=== PATIENT | female | born 1975 | race Caucasian/White ===

== ENCOUNTER 2018-09-23 06:01 | Day surgery (SDC) | payer MEDICARE, MEDICAID, SELFPAY ==
[2018-09-23 06:36] VITALS: BP 126/65; PULSE 76; RESP 18; TEMP 36.8; O2SAT 95
[2018-09-23] MEDS: Lactated Ringers 1,000 ML 80 ML IV (07:13)
--- NOTE | 2018-09-23 07:30 | W.PM.DSUDISC ---
Discharge Plan Disposition Patient Disposition: HOME Condition: Good Discharge Details Reason For Visit: tubes- OR Attending Provider: Pepe Arredondo Primary Care Provider: Rylee Lechuga Home Meds and New Rx's Prescriptions: No Action GLUCOPHAGE 500 MG tablet 500 mg PO BID RF: 0 melatonin 3 mg Tablet 6 mg PO HS PRNRF: 0 simvastatin 20 mg Tablet 20 mg PO DAILY RF: 0 lisinopril 5 mg Tablet 5 mg PO DAILY RF: 0 multivitamin Capsule 1 cap PO DAILY RF: 0 cholecalciferol (vitamin D3) [Vitamin D3] 1,000 unit Capsule 100 unit PO DAILY RF: 0 metformin 500 mg Tablet 500 mg PO BID RF: 0 Discharge Instructions Additional Instructions: see form Activity:: Activity as Tolerated Diet:: As Tolerated DS: Diagnosis Discharge Diagnosis (1) Chronic otitis media of both ears: Status: Acute (2) Down's syndrome: Status: Acute
[2018-09-23] MEDS: Ofloxacin 0.3% OTIC 5 ML BTL (08:04)
[2018-09-23 08:13] VITALS: BP 140/81; PULSE 87; RESP 17; TEMP 36.6; O2SAT 97
[2018-09-23 08:18] VITALS: BP 154/87; PULSE 83; RESP 18; TEMP 36.6; O2SAT 96
[2018-09-23 08:23] VITALS: BP 154/87; PULSE 86; RESP 14; TEMP 36.6; O2SAT 96
[2018-09-23 08:55] VITALS: BP 128/71; PULSE 79; RESP 18; TEMP 36.7; O2SAT 94
--- NOTE | 2018-09-23 11:52 | ROE_ITS ---
DATE OF PROCEDURE: September 23, 2018 PREOPERATIVE DIAGNOSIS: 1. Recurring mucoid otitis media bilaterally. 2. Conductive hearing loss. 3. History of Down Syndrome. 4. History of pressure equalization tube. 5. History of adenoidectomy. POSTOPERATIVE DIAGNOSIS: Same. PROCEDURE: Long-acting pressure equalization tube placement with operative microscope and evacuation of middle ear contents. SURGEON: Peep Arredondo D.O. ANESTHESIA: General LMA COMPLICATIONS: None. CONDITION: The patient tolerated the procedure well. FINDINGS: Thick mucoid fluid bilateral middle ear space. INDICATIONS FOR PROCEDURE: This is a pleasant 43-year-old female that presents with a history of con ductive hearing loss and recurring mucoid otitis with difficulty hearing, refractory to medical manag ement. She has had tubes placed in the past. Down syndrome patients are more prone to this. The de cision was made forth to proceed with long-acting tubes. Consent was placed in the Chart. DESCRIPTION OF OPERATIVE PROCEDURE: The patient was brought back to the operating suite in stable condition, placed supine on the operating table, and given and general sedation. Time-out was taken to confirm the patient and procedure. The operative microscope was used first to visualize the right external auditory canal. After cerumenectomy was performed, the tympanic membrane was intact. The tympanic membrane had evidence of erythema and mild bulging characteristic. There was poor visualiza tion of middle ear space with a slightly thickened tympanic membrane. A posterior inferior radial ty pe incision was made with myringotomy knife. Middle ear contents were evacuated. A long-acting Shee hy T-tube was placed with ease followed by Floxin otic drops and a cotton ball in the conchal bowl. Attention then was turned to the left external auditory canal. Again, cerumenectomy was performed an d the tympanic membrane was dull with poor visualization with mild erythema. A radial type incision w as made in the inferior posterior quadrant with a myringotomy knife. Middle ear contents were suctio susan. A long-acting Luis T-tube was placed without complication, followed by Floxin otic drops. A cotton ball was placed in the conchal bowl. The patient was stable to PACU and will follow up in 2 we eks in the office. Postoperative instructions were given to include water precautions with the use of ear plugs as well as finishing the otic drops twice daily.
== END 2018-09-23 09:25 | disposition home or self-care (01) ==
PROVIDERS: PCP Family Medicine; Visit Provider Otolaryngology Otolaryngology/Facial Plastic Surgery
PROC: (CPT 69420; principal; 2018-09-23 08:30)
DX: H65.33 Chronic mucoid otitis media, bilateral (principal); H90.2 Conductive hearing loss, unspecified; Q90.9 Down syndrome, unspecified
CPT/HCPCS: 69436; J1100; J2405

== ENCOUNTER 2019-03-11 17:04 | Outpatient (REF) | payer MEDICARE, MEDICAID, SELFPAY | END 2019-03-11 17:24 | LOC: NCHCN 17:04 | PROVIDERS: PCP Family Medicine; Visit Provider Nurse Practitioner Family | DX: L08.9 Local infection of the skin and subcutaneous tissue, unspecified (principal) | CPT/HCPCS: 87070; 87205 ==

== ENCOUNTER 2019-03-18 12:37 | Outpatient (CLI) | payer MEDICARE, MEDICAID, SELFPAY ==
--- NOTE | 2019-03-18 12:59 | DI.RAD_ITS ---
EXAM: XR FINGER LT MIDDLE INDICATION: INFECTION, L08.9, TIP OF MIDDLE FINGER DUE TO CONSTANT BITING/PICKING. COMPARISON: No exams were available for comparison TECHNIQUE: 2D digital imaging was performed. FINDINGS: No acute fracture or dislocation is present. No erosive or destructive changes are seen to suggest o steomyelitis. No radiopaque foreign bodies are seen in the soft tissues. IMPRESSION: No radiographic evidence of acute osteomyelitis.
== END 2019-03-18 12:57 ==
PROVIDERS: PCP Family Medicine; Visit Provider Specialist/Technologist Athletic Trainer
DX: L08.89 Other specified local infections of the skin and subcutaneous tissue (principal)
CPT/HCPCS: 73140

== ENCOUNTER 2019-03-18 12:44 | Outpatient (REF) | payer MEDICARE, MEDICAID, SELFPAY ==
[2019-03-20 13:15] LABS: HSV 1 DNA Result Negative; HSV 2 DNA Result Negative; Specimen Description SEE COMMENTS
== END 2019-03-18 13:04 ==
LOC: NCHCN 12:44
PROVIDERS: PCP Family Medicine; Visit Provider Specialist/Technologist Athletic Trainer
DX: L08.9 Local infection of the skin and subcutaneous tissue, unspecified (principal); Z11.59 Encounter for screening for other viral diseases
CPT/HCPCS: 87077; 87529; 87070; 87186; 87205

== ENCOUNTER 2019-12-11 08:47 | Outpatient (REF) | payer MEDICARE, MEDICAID, SELFPAY ==
[2019-12-11 20:33] LABS: Hemoglobin A1C 6.3 % (3.8-5.6)
[2019-12-11 20:49] LABS: ALT 35 U/L (14-59); AST 20 U/L (15-37); Albumin 4.2 g/dL (3.4-5.0); Alkaline Phosphatase 104 U/L (46-116); Anion Gap 8.1 mmol/L (3-11); BUN 16 mg/dL (7-18); Bilirubin, Total 0.3 mg/dL (0.2-1.0); CO2 26.9 mmol/L (21.0-32.0); CREATININE 0.84 mg/dL (0.55-1.02); Calcium 9.8 mg/dL (8.5-10.1); Calculated LDL 83 mg/dL (<100); Chloride 101 mmol/L (98-107); Cholesterol 168 mg/dL (<200); Glucose 117 mg/dL (74-106); HDL Cholesterol 39 mg/dL (40-60); Potassium 5.3 mmol/L (3.5-5.1); Sodium 136 mmol/L (136-145); Total Protein 7.7 g/dL (6.4-8.2); Triglyceride 231 mg/dL (<150)
== END 2019-12-11 09:07 ==
LOC: NCHCN 08:47
PROVIDERS: PCP Family Medicine; Visit Provider Family Medicine
DX: E78.5 Hyperlipidemia, unspecified (principal); E11.9 Type 2 diabetes mellitus without complications; E66.9 Obesity, unspecified
CPT/HCPCS: 80053; 80061; 83036

== ENCOUNTER 2020-07-08 04:33 | Outpatient (CLI) | payer MEDICARE, MEDICAID, SELFPAY ==
[2020-07-09 22:14] LABS: COVID-19 RT-PCR Result NEGATIVE (Negative)
== END 2020-07-08 04:53 ==
PROVIDERS: PCP Family Medicine; Visit Provider Family Medicine
DX: Z01.818 Encounter for other preprocedural examination (principal); Z11.52 Encounter for screening for COVID-19
CPT/HCPCS: U0003

== ENCOUNTER 2020-07-12 01:16 | Outpatient (CLI) | payer MEDICARE, MEDICAID, SELFPAY ==
--- NOTE | 2020-07-12 10:30 | DI.NM_ITS ---
APPROVED REPORT Exam: Exercise Treadmill Patient Location: Out-Patient Room/Bed: Stress Nurse: Josi Lozano RN Ordering Provider:SALOMON TONEY, Contact Number: [phone] BMI: 31.55 Baseline Rhythm: Sinus Rhythm Indications: Chest pain. Medical History Medical History: DM, Heart murmur, Disability, HTN, HLD. Cardiac Medications: Metformin, Simvastatin, Lisinopril. Allergies: No known drug allergies Cardiac Risk Factors: HTN, Hyperlipidemia, DM, FHX of CAD Previous Cardiac Procedures: None Pretest Chest Pain Characteristics: No chest pain Exercise History: Sedentary Physical Disabilities: Legs (gait) Lung Sounds: Clear to auscultation Heart Sounds: Regular Stress Test Details Test: Exercise stress converted to pharmacologic stress due to failure to obtain a diagnostic stress test. Reason for pharmacologic stress test: physical limitation. Nuclear Acquisition: Rest Tc-99m/Stress Tc-99m 1 day Rest Isotope: Tc-99m Sestamibi. Dose: 12.2 Date: 07/12/20 Injection Time: 1045 Stress Isotope: Tc-99m Sestamibi. Dose: 37.0 Date: 07/12/20 Injection Time: 1320 HR Resting HR Supine: 76 bpm Max Heart Rate (APMHR): 174.256492 bpm Resting HR Standin bpm Target HR (85% APMHR): 147.916879 bpm Max HR Achieved: 133 bpm % of APMHR: 76.44 Recovery HR: 99 bpm HR response to stress: Normal HR response to stress Comment: Blunted HR recovery. BP Resting BP Supine: 128/82 mmHg Resting BP Standin/80 mmHg Max BP: 142/60 mmHg Recovery BP: 128/60 mmHg BP response to stress: Normal blood pressure response to stress. ECG Resting ECG: Sinus Rhythm Ectopy: None. Comment: mild diffuse ST elevation noted. Inverted T wave leads III, aVR, V1 Stress ECG: Sinus Tachycardia ST Change: No significant ST segment changes noted Arrhythmia: None Recovery ECG: Sinus Tachycardia Recovery ST Change: No significant ST segment changes noted Recovery Arrhythmia: occ. PVC. Clinical Reason for Termination: Fatigue; unable to keep ambulating at set pace. Stress Symptoms: General Fatigue Exercise duration: 3 min02 sec Exercise capacity: 4.77 METs Hopper Treadmill Score: 3.1 Rate Pressure Product: [id number] Stress ECG Conclusion 1. The patient exercised for 3 minutes (5 METS). The patient did not reach target heart rate and thi s was converted to a pharmacological stress. 2. The EKG portion of this exam is nondiagnostic. Hopper Treadmill Score is 3.1 which is Moderate risk. Stress Test Summary STAGE Time (mins) Speed (mph) Grade (%) HR BP SYMPTOMS METS Supine 76 128/82 Standing 84 124/80 1 3 1.7 10 133 4.6 1 min post Lexiscan injection 133 142/60 Nauseous. 3 min post Lexiscan injection 121 138/64 6 min post Lexiscan injection 113 128/60 Symptoms resolved. 18 min post injection 99 MPI Conclusion The patient's ejection fraction was greater than 70% with stress. There were no wall motion abnormal ities. Images of the study were poor but there was no clear evidence of ischemia on the imaging portion of t he exam. This likely represents a normal SPECT stress test. Radiologist Interpretation Radiologist agrees with Taker Down's Interpretation. Radiologist Interpretation by: Ann Kerr MD Interpretation Date/Time: 07/13/2020 16:09:06
[2020-07-12] MEDS: Regadenoson 0.4 MG/5 ML SYR IVP (13:44)
== END 2020-07-12 01:36 ==
PROVIDERS: PCP Family Medicine; Visit Provider Family Medicine
DX: R07.9 Chest pain, unspecified (principal); I10 Essential (primary) hypertension; E78.5 Hyperlipidemia, unspecified; E11.9 Type 2 diabetes mellitus without complications; Z82.49 Family history of ischemic heart disease and other diseases of the circulatory system
CPT/HCPCS: 78452; 93016; 93018; 93017; J2785

== ENCOUNTER 2021-01-25 13:55 | Outpatient (REF) | payer MEDICARE, MEDICAID, SELFPAY ==
[2021-01-25 14:18] LABS: HCT 41.5 % (36.0-46.0); HGB 13.5 g/dL (11.2-15.7); MCH 28.8 pg (27.0-33.0); MCHC 32.5 % (32.0-36.0); MCV 88.7 fL (80-95); MPV 11.4 fL (8.0-11.0); Platelet Count 389 10^3/uL (130-400); RBC 4.68 10^6/uL (3.93-5.22); RDW 12.7 % (11.7-14.6); RDW-SD 41.2 fL; WBC 10.39 10^3/uL (4.4-10.8)
[2021-01-25 14:46] LABS: Hemoglobin A1C 6.8 % (<5.7)
[2021-01-25 14:47] LABS: ALT 41 U/L (14-59); AST 25 U/L (15-37); Albumin 4.2 g/dL (3.4-5.0); Alkaline Phosphatase 98 U/L (46-116); Anion Gap 8.7 mmol/L (3-11); BUN 14 mg/dL (7-18); Bilirubin, Total 0.4 mg/dL (0.2-1.0); CO2 29.3 mmol/L (21.0-32.0); CREATININE 0.8 mg/dL (0.55-1.02); Calcium 9.9 mg/dL (8.5-10.1); Calculated LDL 72 mg/dL (<100); Chloride 102 mmol/L (98-107); Cholesterol 155 mg/dL (<200); Glucose 91 mg/dL (74-106); HDL Cholesterol 45 mg/dL (40-60); Potassium 4.9 mmol/L (3.5-5.1); Sodium 140 mmol/L (136-145); Total Protein 7.6 g/dL (6.4-8.2); Triglyceride 192 mg/dL (<150)
[2021-01-27 01:25] LABS: Vitamin D 25 Total 48.6 ng/mL (30-100)
== END 2021-01-25 13:56 | disposition home or self-care (01) ==
LOC: NCHCN 13:55
PROVIDERS: PCP Family Medicine; Visit Provider Family Medicine
DX: E11.9 Type 2 diabetes mellitus without complications (principal); E78.5 Hyperlipidemia, unspecified; E03.9 Hypothyroidism, unspecified; E66.9 Obesity, unspecified; Q93.88 Other microdeletions
CPT/HCPCS: 80053; 80061; 82306; 85027; 83036

== ENCOUNTER 2024-09-03 12:52 | Outpatient (REF) | payer MEDICARE, MEDICAID, SELFPAY ==
[2024-09-03 14:14] LABS: HCT 42.3 % (36.0-46.0); HGB 13.7 g/dL (11.2-15.7); MCH 28.4 pg (27.0-33.0); MCHC 32.4 % (32.0-36.0); MCV 88 fL (80-95); MPV 11.3 fL (8.0-11.0); Platelet Count 396 10^3/uL (130-400); RBC 4.82 10^6/uL (3.93-5.22); RDW 12.9 % (11.7-14.6); RDW-SD 41.3 fL; WBC 11.53 10^3/uL (4.4-10.8)
[2024-09-03 14:43] LABS: ALT 58 U/L (14-59); AST 36 U/L (15-37); Alkaline Phosphatase 118 U/L (46-116); Anion Gap 6.9 mmol/L (3-11); BUN 13 mg/dL (7-18); Bilirubin, Total 0.3 mg/dL (0.2-1.0); CO2 30.1 mmol/L (21.0-32.0); CREATININE 0.8 mg/dL (0.55-1.02); Calcium 10.1 mg/dL (8.5-10.1); Calculated LDL 56 mg/dL (<100); Chloride 103 mmol/L (98-107); Cholesterol 187 mg/dL (<200); Estimated GFR 89.71 (mL/min/1.73m2); Glucose 105 mg/dL (74-106); HDL Cholesterol 52 mg/dL (>or=50); Potassium 4.9 mmol/L (3.5-5.1); Sodium 140 mmol/L (136-145); Total Protein 7.7 g/dL (6.4-8.2); Triglyceride 398 mg/dL (<150)
[2024-09-03 14:52] LABS: COMMENT (LAB VIEW ONLY) 47.71 mg/dL; Microalb ug/mg Crea 49.7 ug/mg Cr
== END 2024-09-03 12:53 | disposition home or self-care (01) ==
LOC: NCHCN 12:52
PROVIDERS: PCP Family Medicine; Visit Provider Family Medicine
DX: Z00.00 Encounter for general adult medical examination without abnormal findings (principal); E11.9 Type 2 diabetes mellitus without complications
CPT/HCPCS: 80053; 80061; 85027; 82043; 82570